=== PATIENT | male | born 1975 | race Caucasian/White ===

== ENCOUNTER → 2016-07-14 | Outpatient (CLI) | payer OTHER ==
[~2016-07-14] MED LIST: DIVA500T59 PO; DPKEC500 PO; QUET1TAB34 PO
[2016-07-14 09:35] LABS: BASO % 0.4 %; BASO ABS # 0.02 K/uL (0-0.2); COMPLETE YES; EOS % 5.4 %; HEMATOCRIT 43.1 % (42-52); IG% 0.2 %; LYMPH % 37.6 %; MEAN CELL VOLUME 88.9 fL (80-100); MEAN CORPUSCULAR HEMOGLOBIN 30.5 pg (25-34); MEAN CORPUSCULAR HGB CONC 34.3 g/dl (32-36); MEAN PLATELET VOLUME 9.1 fL (7.4-10.4); MONO % 11.9 %; NEUT % 44.5 %; PLATELET COUNT 255 K/uL (130-400); RED BLOOD COUNT 4.85 M/uL (4.7-6.1); WHITE BLOOD COUNT 4.79 K/uL (4.8-10.8)
== END | disposition home or self-care (01) ==
LOC: C.LAB 08:24
PROVIDERS: ATTEND Urology
DX: Z79.899 Other long term (current) drug therapy (principal)

== ENCOUNTER 2016-12-13 07:15 | Emergency (ER) | payer OTHER ==
[~2016-12-13] VITALS: Ht 182.9 cm; Wt 104.8 kg
[~2016-12-13 07:15] MED LIST changes: -DIVA500T59 PO; -QUET1TAB34 PO
[2016-12-13 07:19] VITALS: TEMP 36.4; Ht 182.9 cm; Wt 104.8 kg
[2016-12-13] MEDS ORDERED: MULTI-VITAMIN INFUSION INJ 10 ML, THIAMINE HCL INJ 100 MG, FoLIC ACID INJ 1 MG in SODIU... IV ONE (07:30)
[2016-12-13] MEDS ORDERED: QUET1TAB34 PO (07:51)
[2016-12-13] MEDS ORDERED: DIVA500T59 PO (07:51)
--- NOTE | 2016-12-13 07:51 | EMERGENCY ROOM VISIT NOTE ---
History Report prepared by Kamran: Lokesh Millan Under the Supervision of: Dr. Rene Andrade M.D. First contact with patient: 07:21 Chief Complaint: DETOX REQUEST Stated Complaint: ALCOHOL History of Present Illness The patient is a 41 year old male who presents to the Emergency Room with complaints of constant alcohol consumption that started December 06. He states that he has a history of alcoholism, but has been "generally sober" for the last 5 years. The patient admits that he started drinking again about 8 months ago, but states that he has been sober since. He reports that he has been drinking a fifth and half and reports that he knows the alcohol is hurting him. The patient states that he is currently feeling shaky, and admits that he has experienced these withdrawal symptoms before. The patient admits that he has a history of bipolar disorder, which he takes medication for, and admits that his disorder has been fine. He denies any change in appetite, trauma, chest pain, shortness of breath, abdominal pain, numbness or weakness, suicidal ideations, and any medications. Source of History: patient Onset: December 06 Position: other (global) Timing: constant Modifying Factors (Worsening): other (alcohol) Associated Symptoms: No chest pain, No SOB, No abdominal pain, No weakness, No numbness Review of Systems See HPI for pertinent positives & negatives. A total of 10 systems reviewed and were otherwise negative. Past Medical & Surgical Medical Problems: (1) Antisocial personality disorder (2) Bipolar disorder, unspecified (3) Lyme disease (4) Mallet finger (5) Polysubstance abuse Old medical records were reviewed. Nurse's notes were reviewed and I agree with. Family History Stroke Social History Smoking Status: Never Smoker Alcohol Use: heavy Drug Use: heroin Housing Status: lives with significant other Occupation Status: employed Current/Historical Medications Scheduled Divalproex Sodium (Depakote), 1 TAB PO BID Quetiapine Fumarate (Seroquel), 100 MG PO HS Allergies Coded Allergies: No Known Allergies (Unverified , 12/13/16) Physical Exam Vital Signs Date Time Temp Pulse Resp B/P (MAP) Pulse Ox O2 Delivery O2 Flow Rate FiO2 12/13/16 08:50 93 18 135/95 94 Room Air 12/13/16 08:03 88 12/13/16 07:19 36.4 111 20 146/82 95 Room Air Physical Exam General: Well developed well nourished non ill appearing young male in no acute distress, breathing comfortably on room air. Normal speech HEENT: Normal cephalic atraumatic. Pupils are equal round and reactive to light. Extraocular movements are intact. Oropharynx is pink with moist mucous membranes. No swelling of the mouth lips or tongue. Neck: Supple with a midline trachea. No meningeal signs or stiffness, no JVD or bruits. No Stridor. Chest: Clear to auscultation bilaterally. No wheezes or rhonchi. No increased work of breathing. Heart: regular rate and rhythm. Abdomen: Soft nontender, nondistended without rebound guarding or rigidity. Extremities: No cyanosis clubbing or edema. No calf tenderness or assymetry Spine/Back. Non tender to palpation. No CVA tenderness Skin: Good turgor without rashes. Neurologic exam: No tremor. Cranial nerves two through 12 are intact. Motor and sensation are intact and symmetrical throughout. Medical Decision & Procedures Laboratory Results 12/13/16 07:40 Red Blood Count 4.94, Mean Corpuscular Volume 88.5, Mean Corpuscular Hemoglobin 30.2, Mean Corpuscular Hemoglobin Concent 34.1, Mean Platelet Volume 8.7, Neutrophils (%) (Auto) 53.6, Lymphocytes (%) (Auto) 37.8, Monocytes (%) (Auto) 6.6, Eosinophils (%) (Auto) 1.2, Basophils (%) (Auto) 0.5, Neutrophils # (Auto) 3.57, Lymphocytes # (Auto) 2.52, Monocytes # (Auto) 0.44, Eosinophils # (Auto) 0.08, Basophils # (Auto) 0.03 12/13/16 07:40 Test 12/13/16 07:40 White Blood Count 6.66 K/uL (4.8-10.8) Red Blood Count 4.94 M/uL (4.7-6.1) Hemoglobin 14.9 g/dL (14.0-18.0) Hematocrit 43.7 % (42-52) Mean Corpuscular Volume 88.5 fL (80-100) Mean Corpuscular Hemoglobin 30.2 pg (25-34) Mean Corpuscular Hemoglobin Concent 34.1 g/dl (32-36) Platelet Count 273 K/uL (130-400) Mean Platelet Volume 8.7 fL (7.4-10.4) Neutrophils (%) (Auto) 53.6 % Lymphocytes (%) (Auto) 37.8 % Monocytes (%) (Auto) 6.6 % Eosinophils (%) (Auto) 1.2 % Basophils (%) (Auto) 0.5 % Neutrophils # (Auto) 3.57 K/uL (1.4-6.5) Lymphocytes # (Auto) 2.52 K/uL (1.2-3.4) Monocytes # (Auto) 0.44 K/uL (0.11-0.59) Eosinophils # (Auto) 0.08 K/uL (0-0.5) Basophils # (Auto) 0.03 K/uL (0-0.2) RDW Standard Deviation 43.5 fL (36.4-46.3) RDW Coefficient of Variation 13.5 % (11.5-14.5) Immature Granulocyte % (Auto) 0.3 % Immature Granulocyte # (Auto) 0.02 K/uL (0.00-0.02) Anion Gap 9.0 mmol/L (3-11) Est Creatinine Clear Calc Drug Dose 125.4 ml/min Estimated GFR () 110.7 Estimated GFR (Non- 95.5 BUN/Creatinine Ratio 12.4 (10-20) Calcium Level 8.5 mg/dl (8.5-10.1) Magnesium Level 2.3 mg/dl (1.8-2.4) Valproic Acid (Depakene) Level 31 mcg/ml (50-100) Ethyl Alcohol mg/dL 139.0 mg/dl (0-3) Laboratory studies as stated above per my review. Medications Administered Medications (Trade) Dose Ordered Sig/Roya Route Start Time Stop Time Status Last Admin Dose Admin Multivitamins 10 ml/Thiamine HCl 100 mg/Folic Acid 1 mg/Sodium Chloride 1,011.2 ml @ 200 mls/ hr Q5H4M ONCE IV 12/13/16 07:30 12/13/16 12:33 12/13/16 08:00 200 MLS/HR Lorazepam (Ativan Inj) 1 mg NOW STAT IV 12/13/16 07:54 12/13/16 07:56 DC 12/13/16 08:00 1 MG Lorazepam (Ativan Inj) 1 mg NOW STAT IV 12/13/16 08:51 12/13/16 08:52 DC 12/13/16 09:45 1 MG ED Course 0724: Past medical records reviewed. The patient was evaluated in room A04B, and a complete history and physical examination were performed. 0730: Multivitamins 10 ml/ Thiamine HCl 100 mg/ Folic Acid 1 mg/ Sodium Chloride 1011.2 ml @ 200 mls/hr IV. 0754: Ativan Injection 1 mg IV. 0837: I reevaluated the patient and he is resting comfortably. He states that he is feeling better and case management is working on getting him placed in detox. 0851: I reevaluated the patient and he is feeling anxious again. I ordered Ativan Injection 1 mg IV. 0940: I reevaluated the patient and he is resting comfortably. He would not like to be admitted and is going [facility]. He denies any suicidal ideations and admits his will take him home. The patient was discharged home. Medical Decision Differentials include, but are not limited to; alcohol intoxication, alcohol withdrawal, depression, overdose, electrolyte abnormality, metabolic abnormality. Medication Reconciliation: I attest that I have personally reviewed the patient' s current medication list. Blood pressure Screening: Patient was found to have normal blood pressure on screening and does not require follow-up. This patient comes in as described above. He was placed room A4. He is here for treatment and evaluation of alcohol abuse/withdrawal. He have a history of alcoholism as well as bipolar and said he started drinking about a week ago. He 's been drinking heavily. He just wants some help. He denies that he isn't suicidal ideations at present but when he drinks he apparently thinks about it. He has not tried overdose , use any drugs , aspirin, or Tylenol. IV access established she does not appear to be significant withdrawn but to help prevent this he was given Ativan 1 mg IV. He was also given a banana bag IV. Multiple blood testing was obtained. He was reassessed frequently. He remained stable he was given an additional milligram of Ativan he appears to not be in any withdrawal. He has no acute electrode or metabolic abnormalities. Nothing to suggest acute toxologic processes. Alcohol is only mildly elevated in the mid mid 100 range. We have got him an appointment to be admitted at [facility] in [place] the patient are happy with this. They are going to take him at 2:00. We suggested the patient wait here but he adamantly denies and wants to sign out his is in a come pick him I think this is reasonable. I told not to drink anymore alcohol. He denies any suicidal or homicidal ideations. He seems generally interested in getting help and I do suspect will follow-up as planned at her mid his is cannot come get him to help ensure this as well. Impression Primary Impression: Alcohol intoxication Additional Impression: Alcohol abuse Scribe Attestation The scribe's documentation has been prepared under my direction and personally reviewed by me in its entirety. I confirm that the note above accurately reflects all work, treatment, procedures, and medical decision making performed by me. Departure Information Dispostion Home / Self-Care Referrals No Doctor, Assigned (PCP) Forms HOME CARE DOCUMENTATION FORM, IMPORTANT VISIT INFORMATION, WORK / SCHOOL INSTRUCTIONS Patient Instructions My [facility] Additional Instructions Rest. Drink plenty of fluids. Do not drink any more alcohol. Got to [facility], they are expecting you for admission and detox Problem Qualifiers
[2016-12-13] MEDS ORDERED: LORAZEPAM 2 MG/ML 1 ML VIAL IV STA ×2 (07:54→08:51)
[2016-12-13 08:07] LABS: BASO % 0.5 %; BASO ABS # 0.03 K/uL (0-0.2); COMPLETE YES; EOS % 1.2 %; HEMATOCRIT 43.7 % (42-52); IG% 0.3 %; LYMPH % 37.8 %; LYMPH ABS # 2.52 K/uL (1.2-3.4); MEAN CELL VOLUME 88.5 fL (80-100); MEAN CORPUSCULAR HEMOGLOBIN 30.2 pg (25-34); MEAN CORPUSCULAR HGB CONC 34.1 g/dl (32-36); MEAN PLATELET VOLUME 8.7 fL (7.4-10.4); MONO % 6.6 %; NEUT % 53.6 %; PLATELET COUNT 273 K/uL (130-400); RED BLOOD COUNT 4.94 M/uL (4.7-6.1); WHITE BLOOD COUNT 6.66 K/uL (4.8-10.8)
[2016-12-13 08:52] LABS: BUN/CREATININE RATIO 12.4 (10-20); CALCIUM 8.5 mg/dl (8.5-10.1); CREATININE 0.99 mg/dl (0.60-1.40); POTASSIUM 3.6 mmol/L (3.5-5.1)
[2016-12-13 09:51] VITALS: BP 133/91; PULSE 98; O2SAT 97
[2016-12-13 10:31] LABS: ALKALINE PHOSPHATASE 69 U/L (45-117); ALT/SGPT 54 U/L (12-78); AST/SGOT 30 U/L (15-37)
== END 2016-12-13 10:03 | disposition home or self-care (01) ==
LOC: C.EDB 07:17 → C.EDA 10:03
DX: F10.229 Alcohol dependence with intoxication, unspecified (principal); Y90.6 Blood alcohol level of 120-199 mg/100 ml; F31.9 Bipolar disorder, unspecified; F60.2 Antisocial personality disorder; Z79.899 Other long term (current) drug therapy

== ENCOUNTER → 2017-01-25 | Outpatient (CLI) | payer OTHER ==
[~2017-01-25] MED LIST changes: +DIVA500T59 PO; -DPKEC500 PO; +QUET1TAB34 PO
[2017-01-25 09:39] LABS: BASO % 0.4 %; BASO ABS # 0.02 K/uL (0-0.2); COMPLETE YES; EOS % 2.3 %; HEMATOCRIT 44.2 % (42-52); IG% 0.2 %; LYMPH % 41.9 %; LYMPH ABS # 1.99 K/uL (1.2-3.4); MEAN CELL VOLUME 90.6 fL (80-100); MEAN CORPUSCULAR HEMOGLOBIN 31.4 pg (25-34); MEAN CORPUSCULAR HGB CONC 34.6 g/dl (32-36); MEAN PLATELET VOLUME 9.4 fL (7.4-10.4); MONO % 6.7 %; NEUT % 48.5 %; PLATELET COUNT 238 K/uL (130-400); RED BLOOD COUNT 4.88 M/uL (4.7-6.1); WHITE BLOOD COUNT 4.75 K/uL (4.8-10.8)
[2017-01-25 09:51] LABS: ESTIMATED AVERAGE GLUCOSE 103 mg/dl; HA1C FLAG Normal (Normal)
[2017-01-25 10:00] LABS: BENZODIAZEPINE, URINE NEG (NEG); COCAINE,URINE NEG (NEG); PHENCYCLIDINE, URINE NEG (NEG)
[2017-01-25 10:06] LABS: ALT/SGPT 24 U/L (12-78); BLOOD UREA NITROGEN 12 mg/dl (7-18); BUN/CREATININE RATIO 12.5 (10-20); CALCIUM 8.7 mg/dl (8.5-10.1); CARBON DIOXIDE 28 mmol/L (21-32); CHLORIDE 108 mmol/L (98-107); CHOLESTEROL 179 mg/dl (0-200); CREATININE 0.99 mg/dl (0.60-1.40); GLUCOSE 97 mg/dl (70-99); POTASSIUM 4.1 mmol/L (3.5-5.1); SODIUM 142 mmol/L (136-145); TRIGLYCERIDES 139 mg/dl (0-150); VERY LOW DENSITY LIPOPROT CALC 28 mg/dl
[2017-01-25 10:14] LABS: ALB/GLOB RATIO 1.2 (0.9-2); ALKALINE PHOSPHATASE 69 U/L (45-117); AST/SGOT 15 U/L (15-37); HDL CHOLESTEROL 30 mg/dl; LDL CHOLESTEROL CALCULATED 121 mg/dl
--- NOTE | 2017-02-01 13:59 | CODING QUERY MEDICAL NECESSITY ---
SUPPORTING DIAGNOSIS NEEDED A supporting diagnosis is required for the test/procedure performed on this patient in order for us to be reimbursed by the patient's insurance. Please provide a supporting diagnosis for the following test/procedure listed below next to the test name along with your signature. *If there is no additional diagnosis for this patient that would support the following test/procedure please document that below next to the test/procedure. Test(s)/Procedure(s) that require a supporting diagnosis: * HEMOGLOBIN A1C DIAGNOSIS: Provider Signature: Date: Thank you Christy Cha [email or web address] Information Management Once completed, please kindly fax back to [phone] For questions please call [phone]
== END | disposition home or self-care (01) ==
LOC: C.LAB 08:44
PROVIDERS: ATTEND Physician Assistant
DX: F10.21 Alcohol dependence, in remission (principal); F19.10 Other psychoactive substance abuse, uncomplicated; Z79.899 Other long term (current) drug therapy

== ENCOUNTER 2017-04-28 09:57 | Emergency (ER) | payer OTHER ==
[~2017-04-28] VITALS: Ht 182.9 cm; Wt 94.2 kg
[2017-04-28 10:05] VITALS: TEMP 36.7; Ht 182.9 cm; Wt 94.2 kg
[2017-04-28] MEDS ORDERED: THIAMINE HCL 100 MG TAB PO STA (10:18)
[2017-04-28] MEDS ORDERED: LORAZEPAM 2 MG/ML 1 ML VIAL IV STA ×2 (10:18→12:14)
[2017-04-28] MEDS ORDERED: CLONIDINE HCL 0.3 MG/24 HR TRANSDERM SYS TD STA (10:18)
--- NOTE | 2017-04-28 10:20 | EMERGENCY ROOM VISIT NOTE ---
History Report prepared by Kamran: Birgit Medina Under the Supervision of: Dr. Koby Mccall M.D. First contact with patient: 10:11 Chief Complaint: SEIZURE Stated Complaint: SEIZURE, DRINKING Nursing Triage Summary: pt reports he is herroin addict and alcoholic klast drink 1 hour ago last heroin 2 weeks ago. having seizures every day per pt not witnessed reports loss of time after falling down History of Present Illness The patient is a 41 year old male who presents to the Emergency Room with complaints of a detox request. He admits to a history of heroin addiction and alcoholism. 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 The last time he used Heroin was 2 weeks [employer]. He admits he has a problem with substance abuse and states "I need help, I'm serious". The last time he was in rehab was approximately a month ago at [facility]. The patient also admits to a history of seizures and states he takes daily Seroquel. His last seizure was 3 days ago. 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 A total of 10 systems reviewed and were otherwise negative. Past Medical & Surgical Medical Problems: (1) Antisocial personality disorder (2) Bipolar disorder, unspecified (3) Lyme disease (4) Mallet finger (5) Polysubstance abuse Family History Stroke Social History Smoking Status: Current Some Day Smoker Alcohol Use: heavy Drug Use: heroin Marital Status: single Housing Status: lives with significant other Occupation Status: employed Current/Historical Medications Scheduled Chlorpromazine Hcl (Thorazine), 25 MG PO BID Divalproex Sodium (Depakote), 1 TAB PO BID Quetiapine Fumarate (Seroquel), 250 MG PO HS Allergies Coded Allergies: No Known Allergies (Unverified , 04/28/17) Physical Exam Vital Signs Date Time Temp Pulse Resp B/P (MAP) Pulse Ox O2 Delivery O2 Flow Rate FiO2 04/28/17 14:34 88 04/28/17 12:41 87 20 120/87 97 04/28/17 12:08 75 20 117/86 93 Room Air 04/28/17 11:30 96 Room Air 04/28/17 11:30 96 20 123/83 97 04/28/17 10:05 36.7 107 18 119/81 94 Room Air Physical Exam GENERAL: Patient is a healthy-appearing well-nourished 41 year old male, smells strongly of alcohol HEAD: Normocephalic atraumatic EYES: Ocular movements intact pupils equal and react to light OROPHARYNX mucous membranes are moist no exudates present no erythema or edema present NECK: Supple no nuchal rigidity CHEST: Good equal expansion LUNGS: Clear and equal to auscultation CARDIAC: Normal S1 and S2 ABDOMEN: Soft nontender no guarding BACK: No CVA tenderness EXTREMITIES: No pain upon palpation normal muscle strength in all groups no clubbing cyanosis or edema NEURO: Patient is following commands and answering questions appropriately. Alert and oriented x3 Cranial Nerves 2-12 grossly intact Medical Decision & Procedures Laboratory Results 04/28/17 10:49 Red Blood Count 5.35, Mean Corpuscular Volume 89.5, Mean Corpuscular Hemoglobin 30.1, Mean Corpuscular Hemoglobin Concent 33.6, Mean Platelet Volume 9.3, Neutrophils (%) (Auto) 68.7, Lymphocytes (%) (Auto) 26.1, Monocytes (%) (Auto) 4.7, Eosinophils (%) (Auto) 0.3, Basophils (%) (Auto) 0.1, Neutrophils # (Auto) 5.16, Lymphocytes # (Auto) 1.96, Monocytes # (Auto) 0.35, Eosinophils # (Auto) 0.02, Basophils # (Auto) 0.01 04/28/17 10:49 Test 04/28/17 10:49 04/28/17 11:15 White Blood Count 7.51 K/uL (4.8-10.8) Red Blood Count 5.35 M/uL (4.7-6.1) Hemoglobin 16.1 g/dL (14.0-18.0) Hematocrit 47.9 % (42-52) Mean Corpuscular Volume 89.5 fL (80-100) Mean Corpuscular Hemoglobin 30.1 pg (25-34) Mean Corpuscular Hemoglobin Concent 33.6 g/dl (32-36) Platelet Count 376 K/uL (130-400) Mean Platelet Volume 9.3 fL (7.4-10.4) Neutrophils (%) (Auto) 68.7 % Lymphocytes (%) (Auto) 26.1 % Monocytes (%) (Auto) 4.7 % Eosinophils (%) (Auto) 0.3 % Basophils (%) (Auto) 0.1 % Neutrophils # (Auto) 5.16 K/uL (1.4-6.5) Lymphocytes # (Auto) 1.96 K/uL (1.2-3.4) Monocytes # (Auto) 0.35 K/uL (0.11-0.59) Eosinophils # (Auto) 0.02 K/uL (0-0.5) Basophils # (Auto) 0.01 K/uL (0-0.2) RDW Standard Deviation 49.8 fL (36.4-46.3) RDW Coefficient of Variation 15.3 % (11.5-14.5) Immature Granulocyte % (Auto) 0.1 % Immature Granulocyte # (Auto) 0.01 K/uL (0.00-0.02) Prothrombin Time 10.8 SECONDS (9.0-12.0) Prothromb Time International Ratio 1.0 (0.9-1.1) Activated Partial Thromboplast Time 25.7 SECONDS (21.0-31.0) Partial Thromboplastin Ratio 1.0 Anion Gap 8.0 mmol/L (3-11) Est Creatinine Clear Calc Drug Dose 120.6 ml/min Estimated GFR () 112.1 Estimated GFR (Non- 96.7 BUN/Creatinine Ratio 9.0 (10-20) Calcium Level 9.4 mg/dl (8.5-10.1) Total Bilirubin 0.4 mg/dl (0.2-1) Direct Bilirubin < 0.1 mg/dl (0-0.2) Aspartate Amino Transf (AST/SGOT) 57 U/L (15-37) Alanine Aminotransferase (ALT/SGPT) 72 U/L (12-78) Alkaline Phosphatase 78 U/L (45-117) Total Creatine Kinase 121 U/L (39-308) Total Protein 8.5 gm/dl (6.4-8.2) Albumin 4.5 gm/dl (3.4-5.0) Lipase 200 U/L (73-393) Salicylates Level 1.8 mg/dl (2.8-20) Acetaminophen Level < 2 ug/ml (10-30) Valproic Acid (Depakene) Level 12 mcg/ml (50-100) Ethyl Alcohol mg/dL 266.0 mg/dl (0-3) Urine Color YELLOW Urine Appearance CLEAR (CLEAR) Urine pH 7.5 (4.5-7.5) Urine Specific Hildreth 1.020 (1.000-1.030) Urine Protein NEG (NEG) Urine Glucose (UA) NEG (NEG) Urine Ketones 1+ (NEG) Urine Occult Blood NEG (NEG) Urine Nitrite NEG (NEG) Urine Bilirubin NEG (NEG) Urine Urobilinogen NEG (NEG) Urine Leukocyte Esterase TRACE (NEG) Urine WBC (Auto) 1-5 /hpf (0-5) Urine RBC (Auto) 5-10 /hpf (0-4) Urine Hyaline Casts (Auto) 5-10 /lpf (0-5) Urine Epithelial Cells (Auto) 10-20 /lpf (0-5) Urine Bacteria (Auto) NEG (NEG) Urine Opiates Screen NEG (NEG) Urine Methadone, Qualitative NEG (NEG) Urine Barbiturates NEG (NEG) Urine Phencyclidine (PCP) Level NEG (NEG) Ur Amphetamine/Methamphetamine NEG (NEG) MDMA (Ecstasy) Screen NEG (NEG) Urine Benzodiazepines Screen POS (NEG) Urine Cocaine Metabolite NEG (NEG) Urine Marijuana (THC) NEG (NEG) Labs reviewed by ED physician. Medications Administered Medications (Trade) Dose Ordered Sig/Roya Route Start Time Stop Time Status Last Admin Dose Admin Folic Acid (Folvite Tab) 1 mg NOW STAT PO 04/28/17 10:18 04/28/17 10:23 DC 04/28/17 11:04 1 MG Thiamine HCl (Vitamin B-1 Tab) 100 mg NOW STAT PO 04/28/17 10:18 04/28/17 10:23 DC 04/28/17 11:05 100 MG Clonidine HCl (Psaomako-Coj-3 0.3mg/24hr Patch) 1 patch NOW STAT TD 04/28/17 10:18 04/28/17 10:23 DC 04/28/17 11:06 1 PATCH Lorazepam (Ativan Inj) 1 mg NOW STAT IV 04/28/17 10:18 04/28/17 10:23 DC 04/28/17 11:06 1 MG Divalproex Sodium (Depakote Extended Rel Tab) 500 mg NOW ONCE PO 04/28/17 10:30 04/28/17 10:31 DC 04/28/17 11:05 500 MG Lorazepam (Ativan Inj) 1 mg NOW STAT IV 04/28/17 12:14 04/28/17 12:15 DC 04/28/17 12:39 1 MG Nicotine (Nicoderm Cq 21MG Patch) 1 patch NOW STAT TD 04/28/17 14:43 04/28/17 14:44 DC 04/28/17 14:54 1 PATCH Nicotine Polacrilex (Nicorette 2MG Gum) 1 piece NOW STAT MT 04/28/17 14:43 04/28/17 14:44 DC 04/28/17 14:54 1 PIECE ED Course 1013: Past medical records reviewed. The patient was evaluated in room B2. A complete history and physical examination was performed. 1018: Ativan 1 mg IV, Clonidine .3 mg/24 hour 1 patch TD, Thiamine HCl 100 mg PO , Folic Acid 1 mg PO. 1030: Depakote Sodium 500 mg PO. 1213: I reassessed the patient at this time. He is feeling better and resting comfortably. 1230: Ativan 1 mg IV. 1348: Psychiatric Case Management informed me the patient has been accepted at [facility] for detox. He will be further evaluated. 1400: I reevaluated the patient. He is resting comfortably. I discussed his results and discharge instructions and he verbalized complete understanding and agreement. Medical Decision Prior records/ancillary studies reviewed. Triage Nursing notes reviewed. The patient's history was concerning for altered mental status and a possible alcohol overdose. Differential diagnosis: Etiologies such as alcohol intoxication, toxicologic, infection, hypoglycemia, electrolyte abnormalities, cardiac sources, intracerebral event, neurologic, as well as others were entertained. This is a 41-year-old male who presents emergency department requesting detox. Patient has a seizure history however he reports he has not been taking any of his medications. He was has been drinking alcohol this morning. He denies being suicidal or homicidal. I did discuss the case with case management who discussed the case with [facility]. The patient was accepted there. He did receive folic acid as well as thiamine in the emergency department. I also gave him Ativan as well as Thorazine to help control his anxiety and withdrawal symptoms. He did receive a clonidine patch to also help his withdrawal. Patient and family were in agreement with the treatment plan. Medication Reconcilliation Current Medication List: was personally reviewed by me Blood Pressure Screening Patient's blood pressure: Normal blood pressure Blood pressure disposition: Did not require urgent referral Impression Primary Impression: Alcohol intoxication Scribe Attestation The scribe's documentation has been prepared under my direction and personally reviewed by me in its entirety. I confirm that the note above accurately reflects all work, treatment, procedures, and medical decision making performed by me. Departure Information Dispostion Home / Self-Care Referrals Natalya Sapp M.D. (PCP) Patient Instructions My [facility] Additional Instructions Go directly to [facility] You received narcotic or benzodiazepene medication while in the emergency room today. This is an addictive medication that may cause drowziness as well as constipation. Do not drive, operate heavy machinery, or drink alcohol under the influence of this medication. You have been examined and treated today on an emergency basis only. This is not a substitute for, or an effort to provide, complete comprehensive medical care. It is impossible to recognize and treat all injuries or illnesses in a single emergency department visit. It is therefore important that you follow up closely with Dr Sapp. Call as soon as possible for an appointment. Thank you for your time and consideration. I look forward to speaking with you again soon. Please don't hesitate to call us if you have any questions. Problem Qualifiers Primary Impression: Alcohol intoxication Complication of substance-induced condition: with unspecified complication Qualified Codes: F10.929 - Alcohol use, unspecified with intoxication, unspecified
[2017-04-28] MEDS ORDERED: DIVALPROEX 500 MG EXTENDED RELEASE TAB PO ONE (10:30)
[2017-04-28] MEDS ORDERED: CHLO1TAB19 PO (10:57)
[2017-04-28 11:04] LABS: BASO % 0.1 %; BASO ABS # 0.01 K/uL (0-0.2); COMPLETE YES; EOS % 0.3 %; HEMATOCRIT 47.9 % (42-52); IG% 0.1 %; LYMPH % 26.1 %; LYMPH ABS # 1.96 K/uL (1.2-3.4); MEAN CELL VOLUME 89.5 fL (80-100); MEAN CORPUSCULAR HEMOGLOBIN 30.1 pg (25-34); MEAN CORPUSCULAR HGB CONC 33.6 g/dl (32-36); MEAN PLATELET VOLUME 9.3 fL (7.4-10.4); MONO % 4.7 %; NEUT % 68.7 %; PLATELET COUNT 376 K/uL (130-400); RED BLOOD COUNT 5.35 M/uL (4.7-6.1); WHITE BLOOD COUNT 7.51 K/uL (4.8-10.8)
[2017-04-28 11:12] LABS: PROTHROMBIN TIME (PATIENT) 10.8 SECONDS (9.0-12.0)
[2017-04-28 11:24] LABS: ALT/SGPT 72 U/L (12-78); BLOOD UREA NITROGEN 9 mg/dl (7-18); CALCIUM 9.4 mg/dl (8.5-10.1); CARBON DIOXIDE 29 mmol/L (21-32); CHLORIDE 103 mmol/L (98-107); CREATININE 0.98 mg/dl (0.60-1.40); GLUCOSE 79 mg/dl (70-99); POTASSIUM 4.1 mmol/L (3.5-5.1); SODIUM 140 mmol/L (136-145)
[2017-04-28 11:27] LABS: ALKALINE PHOSPHATASE 78 U/L (45-117); AST/SGOT 57 U/L (15-37)
[2017-04-28 11:30] VITALS: O2SAT 96
[2017-04-28 11:44] LABS: URINE APPEARANCE CLEAR (CLEAR); URINE BILIRUBIN NEG (NEG); URINE COLOR YELLOW; URINE NITRITE NEG (NEG); URINE PH 7.5 (4.5-7.5); UROBILINOGEN NEG (NEG)
[2017-04-28 11:53] LABS: ACETAMINOPHEN < 2 ug/ml (10-30)
[2017-04-28 12:00] LABS: MANUAL MICROSCOPIC REQUIRED? NO; REVIEW REQ? NO; SULFASALICYLIC ACID NEG (NEG)
[2017-04-28 12:05] LABS: BENZODIAZEPINE, URINE POS (NEG); COCAINE,URINE NEG (NEG); PHENCYCLIDINE, URINE NEG (NEG)
[2017-04-28] MEDS ORDERED: NICOTINE 21 MG/24 HR TDSY TD STA (14:43)
[2017-04-28] MEDS ORDERED: NICOTINE POLACRILEX 2 MG GUM MT STA (14:43)
[2017-04-28 14:56] VITALS: BP 117/89; PULSE 112; O2SAT 97
[2017-04-28] MEDS ORDERED: CHLORPROMAZINE HCL 25 MG TAB PO STA (15:00)
== END 2017-04-28 15:20 ==
LOC: C.EDB 09:59
DX: F10.929 Alcohol use, unspecified with intoxication, unspecified (principal); Y90.8 Blood alcohol level of 240 mg/100 ml or more; F11.20 Opioid dependence, uncomplicated; R56.9 Unspecified convulsions; F60.2 Antisocial personality disorder; F31.9 Bipolar disorder, unspecified; A69.20 Lyme disease, unspecified; M20.019 Mallet finger of unspecified finger(s); F17.200 Nicotine dependence, unspecified, uncomplicated; Z82.3 Family history of stroke